=== PATIENT | male | born 1965 | race Caucasian/White ===

== ENCOUNTER → 2019-02-07 08:17 | Outpatient (CLI) | payer OTHER, SELFPAY ==
[2019-02-07 08:41] LABS: Add Manual Diff / Slide Review NO; Basophils Absolute Auto 0 /uL (0-100); Basophils Percent Auto 0.4 % (0-2); Eosinophils Absolute Auto 100 /uL (0-450); Eosinophils Percent Auto 3.2 % (2-4); Hematocrit 41.8 % (41-53); Hemoglobin 14.6 g/dL (13.5-17.5); Lymphocytes Absolute Auto 1300 /uL (1100-4500); Lymphocytes Percent Auto 28.8 % (25-40); Mean Corpuscular Hemoglobin 31.1 PG (26-34); Mean Corpuscular Volume 88.9 fL (80-100); Monocytes Absolute Auto 200 /uL (0-900); Monocytes Percent Auto 5.5 % (3-14); Neutrophils Absolute Auto 2800 /uL (1500-7000); Neutrophils Percent Auto 62.1 % (50-75); Platelet Count 216 X10^3/uL (150-400); Red Cell Distribution Width 13.1 % (11.6-14.8); White Blood Cell Count 4.5 X10^3/uL (4.5-11.0)
[2019-02-07 08:55] LABS: Alanine Aminotransferase 31 IU/L (21-72); Albumin 4.5 g/dL (3.5-5.0); Albumin Globulin Ratio 1.6 (1.0-2.8); Alkaline Phosphatase 47 U/L (38-126); Aspartate Aminotransferase 34 IU/L (17-59); BUN Creatinine Ratio 21.3 (6-22); Bilirubin Total 0.9 mg/dL (0.2-1.3); Blood Urea Nitrogen 17 mg/dL (9-20); Calcium 9.7 mg/dL (8.4-10.2); Carbon Dioxide 30 mmol/L (22-32); Chloride 104 mmol/L (98-107); Cholesterol 264 mg/dL (140-199); Estimated Glomerular Filt Rate > 60.0 mL/min (>60); Globulin 2.8 g/dL (1.7-4.1); Glucose 106 mg/dL (70-100); HDL Cholesterol 50 mg/dL (40-60); HEMOLYSIS < 15 (0-50); LDL Cholesterol Calculated 194 mg/dL (<100); Potassium 4.4 mmol/L (3.4-5.1); Sodium 140 mmol/L (137-145); Total Protein 7.3 g/dL (6.3-8.2); Triglycerides 99 mg/dL (35-150)
== END ==
PROVIDERS: Visit Provider Physician Assistant
DX: E78.2 Mixed hyperlipidemia (principal)
CPT/HCPCS: 36415; 80053; 80061; 82306; 85025

== ENCOUNTER → 2021-03-19 09:12 | Outpatient (CLI) | payer OTHER, SELFPAY ==
--- NOTE | 2021-03-19 | DI.MRI.S_ITS ---
PROCEDURE: MR SHOULDER RT WO CON INDICATIONS: Impingement syndrome of right shoulder TECHNIQUE: Noncontrast oblique coronal T2 fast spin echo with fat saturation, oblique sagittal T1 spin echo and T2 fast spin echo with fat saturation, axial T1 spin echo and T2 fast spin echo with fat saturation through the shoulder. COMPARISON: None. FINDINGS: Image quality: Excellent. Rotator cuff: Moderate supraspinatus tendinopathy with distal, near full-thickness tear (series 8, image 9) and interstitial tears. Moderate infraspinatus tendinopathy with small partial bursal surface and interstitial tears. Mild subscapularis tendinopathy. Sagittal images demonstrate no significant muscle atrophy. Bones and bursae: Patchy T2 hyperintense/T1 hypointense signal is seen in the greater tuberosity, which may reflect contusion. Mild acromioclavicular joint degeneration T2 hyperintense signal within the articulation. No os acromiale. Trace subacromial/subdeltoid fluid. Capsule and soft tissues: T2 hyperintense signal within the superior labrum, extending into the anterior/posterior direction. The long head of the biceps tendon demonstrates normal location and morphology. The rotator interval appears normal, without fibrosis. The coracoclavicular ligament is intact. IMPRESSION: 1. Moderate supraspinatus tendinopathy with distal, near full-thickness and interstitial tears. 2. Moderate infraspinatus tendinopathy with small partial bursal surface and interstitial tears. 3. Superior labral tear as detailed above. 4. Mild AC joint degeneration with fluid signal within the articulation. 5. Small area edema in the greater tuberosity, which may reflect contusion. Dictated by: Caleb Chapman M.D. on 03/19/2021 at 10:44 Approved by: Caleb Chapman M.D. on 03/19/2021 at 10:52
== END ==
PROVIDERS: PCP Physician Assistant; Referring Provider Orthopaedic Surgery; Visit Provider Orthopaedic Surgery
DX: M75.41 Impingement syndrome of right shoulder (principal); M75.111 Incomplete rotator cuff tear or rupture of right shoulder, not specified as traumatic; M19.011 Primary osteoarthritis, right shoulder; S43.431A Superior glenoid labrum lesion of right shoulder, initial encounter; R60.9 Edema, unspecified
CPT/HCPCS: 73221

== ENCOUNTER → 2023-01-26 12:10 | Outpatient (CLI) | payer OTHER, SELFPAY ==
--- NOTE | 2023-01-26 12:10 | DI.US.S_ITS ---
PROCEDURE: US ABDOMEN LIMITED INDICATIONS: SUSPECTED HERNIA PAIN IN LEFT LOWER QUADRANT TECHNIQUE: Real-time focused scanning was performed of the abdomen, with image documentation. Color Doppler was also utilized. COMPARISON: None. FINDINGS: Scan is performed at the area of clinical concern within the left lower quad, including with Valsalva maneuver. No findings of hernia can be seen. No masses, lymph nodes, or fluid collections can be seen. IMPRESSION: Negative for hernia within the area of clinical concern within the left lower quadrant. Dictated by: Etienne Smith M.D. on 01/26/2023 at 15:59 Approved by: Etienne Smith M.D. on 01/26/2023 at 15:59
== END ==
PROVIDERS: PCP Physician Assistant; Referring Provider Physician Assistant; Visit Provider Physician Assistant
DX: R10.32 Left lower quadrant pain (principal)
CPT/HCPCS: 76705